=== PATIENT | male | born 1965 | race Caucasian/White ===

== ENCOUNTER 2019-10-05 12:37 | Emergency (ER) | payer BC, MEDICARE ==
[~2019-10-05] VITALS: Ht 200.7 cm; Wt 127.0 kg
[~2019-10-05 12:37] MED LIST: ALLO300T2 PO; LEVO50TA8 PO; LISI-600 PO; METF-380 PO; METO25TA6 PO
[2019-10-05 12:47] VITALS: BP_SYST 129
[2019-10-05 13:37] VITALS: BP_SYST 129
== END 2019-10-05 13:37 | disposition home or self-care (01) ==
LOC: SED 12:37
DX: R21 Rash and other nonspecific skin eruption (principal); I10 Essential (primary) hypertension; E11.9 Type 2 diabetes mellitus without complications; Z88.1 Allergy status to other antibiotic agents; Z79.899 Other long term (current) drug therapy
CPT/HCPCS: 36415; 86592; 99283